=== PATIENT | female | born 1955 | race Caucasian/White ===

== ENCOUNTER 2016-12-04 13:34 | Emergency (ER) | payer OTHER ==
[~2016-12-04] VITALS: Ht 167.6 cm; Wt 103.0 kg
[2016-12-04 13:38] VITALS: BP 171/101; PULSE 69; RESP 17; TEMP 97.5; O2SAT 96
[2016-12-04] MEDS ORDERED: SIMV40TA PO (14:19)
[2016-12-04 14:20] VITALS: BP 187/101; PULSE 70; RESP 18; O2SAT 97
[2016-12-04] MEDS ORDERED: MORPHINE SULFATE 4 MG/ML INJ IV PUSH ONE (14:30)
[2016-12-04] MEDS ORDERED: SODIUM CHLORIDE 0.9% FLUSH 10 ML FLUSH IV FLUSH PRN (14:30)
[2016-12-04] MEDS ORDERED: VANCOMYCIN INJ 1,000 MG in SODIUM CHLOR 0.9% 250 ML INJ 250 ML IV ONE (14:45)
[2016-12-04] MEDS ORDERED: CIPROFLOXACIN 400 MG PREMIX 200 ML IV ONE (14:45)
[2016-12-04] MEDS ORDERED: ONDANSETRON HCL 4 MG/2 ML VIAL IV PUSH ONE (14:45)
--- NOTE | 2016-12-04 14:47 | RADHPO ---
EXAM DATE/TIME: 12/04/2016 13:59 [facility] COMPARISON: No previous studies available for comparison. INDICATIONS : Fall. Left orbital pain. RADIATION DOSE: 57.99 CTDIvol (mGy) MEDICAL HISTORY : None SURGICAL HISTORY : None. ENCOUNTER: Initial ACUITY: 1 day PAIN SCALE: 8/10 LOCATION: Left cranial TECHNIQUE: Multiple contiguous axial images were obtained of the head. Using automated exposure control and adj ustment of the mA and/or kV according to patient size, radiation dose was kept as low as reasonably a chievable to obtain optimal diagnostic quality images. FINDINGS: CEREBRUM: The ventricles are normal for age. No evidence of midline shift, mass lesion, hemorrhage or acute in farction. No extra-axial fluid collections are seen. POSTERIOR FOSSA: The cerebellum and brainstem are intact. The 4th ventricle is midline. The cerebellopontine angle i s unremarkable. EXTRACRANIAL: Disruption of the left globe is seen in partially visualized on this study. Prominent left preorbital soft tissue edema. SKULL: The calvaria is intact. No evidence of skull fracture. CONCLUSION: Disruption left globe with prominent preorbital soft tissue edema. Please see facial bones CT report. No acute intracranial findings. Devon Queen MD on December 04, 2016 at 14:44 Board Certified Radiologist. This report was verified electronically.
[2016-12-04 14:48] VITALS: RESP 16; O2SAT 98
--- NOTE | 2016-12-04 14:50 | RADHPO ---
EXAM DATE/TIME: 12/04/2016 13:59 [facility] COMPARISON: No previous studies available for comparison. INDICATIONS : Fall. Left orbital pain. RADIATION DOSE: 25.95 CTDIvol (mGy) MEDICAL HISTORY : None SURGICAL HISTORY : None. ENCOUNTER: Initial ACUITY: 1 day PAIN SCORE: 8/10 LOCATION: Left facial TECHNIQUE: Volumetric scanning of the facial bones was performed. Using automated exposure control and adjustme nt of the mA and/or kV according to patient size, radiation dose was kept as low as reasonably achiev able to obtain optimal diagnostic quality images. FINDINGS: ORBITS: There is disruption of the left globe with marked deformity and hyperdensity. The lens is not identif ied. Prominent pre-orbital soft tissue edema. Optic nerve and extraocular muscles are grossly intact. Right orbit within normal limits. No evidence of fracture. NASAL BONE: The nasal bone and maxillary spine are intact ZYGOMATIC ARCHES: Symmetric without evidence of fracture. SINUSES: 1.7 cm polyp or retention cyst in the inferior aspect of the left maxillary sinus. NASAL CAVITY: The nasal septum is intact and midline. The lacrimal ducts are intact. CONCLUSION: Disruption of the left lobe with marked deformity and collapse. Heterogeneous hemorrhage is seen in t he region of the globe. There's also hemorrhage and edema in the pre-orbital soft tissues on the left . Devon Queen MD on December 04, 2016 at 14:45 Board Certified Radiologist. This report was verified electronically.
--- NOTE | 2016-12-04 14:52 | PD ---
HPI Chief Complaint: Fall Time Seen by Provider: 13:50 Travel History International Travel<30 days: No Contact w/Intl Traveler<30days: No Traveled to known affect area: No History of Present Illness HPI 61-year-old female here for evaluation of left eye trauma. The patient states that she was walking down 2 steps when she tripped, falling forward, striking her left head/eye on the rounded edge of a granite table at around 1:00 PM. Denies LOC. She is now complaining of significant pain to her left eye/face as well as loss of peripheral vision in her left eye. She denies any other injuries. No neck or back pain. She is not on any antiplatelets or anticoagulants. Date of last tetanus was within the last 5 years. PFSH Past Medical History High Cholesterol: Yes Diminished Hearing: No Immunizations Current: Yes Tetanus Vaccination: < 5 Years Influenza Vaccination: Yes ?: Not Past Surgical History Cholecystectomy: Yes Social History Alcohol Use: No Tobacco Use: No Substance Use: No Allergies-Medications (Allergen,Severity, Reaction): Coded Allergies: No Known Allergies (Unverified , 12/04/16) Reported Meds & Prescriptions Reported Meds & Active Scripts Active Reported Simvastatin 40 Mg Tab 40 Mg PO HS Review of Systems Except as stated in HPI: all other systems reviewed are Neg Physical Exam Narrative GENERAL: Well-developed, well-nourished, awake, alert, holding a a rag full of ice over her left eye. HEAD: Normocephalic. Significant left periorbital edema/ecchymosis with large/ deep upper/medial eyelid laceration as well as a smaller/lower/medial eyelid laceration. There is mild amount of venous bleeding from these lacerations. Vertical/superficial laceration over her mid forehead without active bleeding, no visible contamination. EYES: Right pupil is 3 mm, round, reactive to light. Left periorbital exam as above. Left globe is irregularly shaped with hyphema present in the anterior chamber. No proptosis. ENT: No nasal bleeding or discharge. No nasal septal hematoma. NECK: Trachea midline. No JVD. No midline vertebral step-off or tenderness. CARDIOVASCULAR: Regular rate and rhythm. RESPIRATORY: No accessory muscle use. Clear to auscultation. Breath sounds equal bilaterally. GASTROINTESTINAL: Abdomen soft, non-tender, nondistended. MUSCULOSKELETAL: No obvious deformities. No clubbing. No cyanosis. No edema. Normal range of motion in all joints and extremities. NEUROLOGICAL: Awake and alert. No obvious cranial nerve deficits. Motor grossly within normal limits. Normal speech. PSYCHIATRIC: Appropriate mood and affect; insight and judgment normal. Data Data Last Documented VS Vital Signs Date Time Temp Pulse Resp B/P Pulse Ox O2 Delivery O2 Flow Rate FiO2 12/04/16 15:29 74 16 160/88 98 12/04/16 14:48 Room Air 12/04/16 13:[address] Brain W/O Iv Contrast(Rout) (12/04/16 ) Ct Facial Bones W/O Iv Cont (12/04/16 ) Ct Cerv Spine W/O Contrast (12/04/16 ) Basic Metabolic Panel (Bmp) (12/04/16 14:22) Complete Blood Count With Diff (12/04/16 14:22) Prothrombin Time / Inr (Pt) (12/04/16 14:22) Act Partial Throm Time (Ptt) (12/04/16 14:22) Iv Access Insert/Monitor (12/04/16 14:22) Ecg Monitoring (12/04/16 14:22) Oximetry (12/04/16 14:22) Morphine Inj (Morphine Inj) (12/04/16 14:30) Sodium Chloride 0.9% Flush (Ns Flush) (12/04/16 14:30) Vancomycin Inj (Vancomycin Inj) (12/04/16 14:45) Ciprofloxacin 400 Mg Premix (Cipro 400 M (12/04/16 14:45) Ondansetron Inj (Zofran Inj) (12/04/16 14:45) Hydromorphone Pf Inj (Dilaudid Pf Inj) (12/04/16 15:15) Labs Laboratory Tests Test 12/04/16 14:33 White Blood Count 11.9 TH/MM3 Red Blood Count 4.99 MIL/MM3 Hemoglobin 14.6 GM/DL Hematocrit 43.7 % Mean Corpuscular Volume 87.5 FL Mean Corpuscular Hemoglobin 29.3 PG Mean Corpuscular Hemoglobin 33.5 % Concent Red Cell Distribution Width 11.6 % Platelet Count 327 TH/MM3 Mean Platelet Volume 7.6 FL Neutrophils (%) (Auto) 69.7 % Lymphocytes (%) (Auto) 21.8 % Monocytes (%) (Auto) 6.8 % Eosinophils (%) (Auto) 1.1 % Basophils (%) (Auto) 0.6 % Neutrophils # (Auto) 8.3 TH/MM3 Lymphocytes # (Auto) 2.6 TH/MM3 Monocytes # (Auto) 0.8 TH/MM3 Eosinophils # (Auto) 0.1 TH/MM3 Basophils # (Auto) 0.1 TH/MM3 CBC Comment DIFF FINAL Differential Comment Prothrombin Time 10.8 SEC Prothromb Time International 1.0 RATIO Ratio Activated Partial 27.1 SEC Thromboplast Time Sodium Level 145 MEQ/L Potassium Level 3.5 MEQ/L Chloride Level 105 MEQ/L Carbon Dioxide Level 28.7 MEQ/L Anion Gap 11 MEQ/L Blood Urea Nitrogen 12 MG/DL Creatinine 0.90 MG/DL Estimat Glomerular Filtration 64 ML/MIN Rate Random Glucose 119 MG/DL Calcium Level 8.2 MG/DL MDM Medical Decision Making Medical Screen Exam Complete: Yes Emergency Medical Condition: Yes Differential Diagnosis Ruptured globe, lens dislocation, eyelid laceration, retro-orbital hematoma unlikely Narrative Course Shortly after arrival to the emergency department the patient was probably taken to CT scan, and upon return I discussed findings with on-call radiologist who tells me that the left globe appears to be completely obliterated. All the edema present appears to be preseptal. There is no proptosis on physical exam, therefore no concern for retro-orbital hematoma. 2:30 PM: Case discussed with on-call fiberglass boat parts finisher at [facility] Dr. John Tolbert who has graciously accepted transfer of the patient. The patient will be transferred to their emergency department where he will evaluate the patient and likely take her to the operating room. He would like the patient to be given a dose of vancomycin and Cipro and to be made NPO. Case discussed with emergency physician at [facility] Dr. Fox who is aware that the patient will be transferred to their department. Patient made aware of all findings and plan. She will be transferred emergently to [facility] emergency department. Diagnosis Primary Impression: Ruptured globe of left eye Qualified Code: S05.32XA - Ruptured globe of left eye, initial encounter Additional Impressions: Eyelid laceration Qualified Code: S01.112A - Eyelid laceration, left, initial encounter Forehead laceration Qualified Code: S01.81XA - Forehead laceration, initial encounter Disposition: 70 TRANSFER TO OTHER FACILITY (To [facility] Emergency Department) Condition: Stable Kehinde Castañeda MD Dec 04, 2016 14:52
--- NOTE | 2016-12-04 14:57 | RADHPO ---
EXAM DATE/TIME: 12/04/2016 13:59 [facility] COMPARISON: No previous studies available for comparison. INDICATIONS : Fall. Left orbital pain. RADIATION DOSE: 26.68 CTDIvol (mGy) MEDICAL HISTORY : None SURGICAL HISTORY : None. ENCOUNTER: Initial ACUITY: 1 day PAIN SCALE: 8/10 LOCATION: neck TECHNIQUE: Volumetric scanning of the cervical spine was performed. Multiplanar reconstructions in the sagittal, coronal and oblique axial planes were performed. Using automated exposure control and adjustment o f the mA and/or kV according to patient size, radiation dose was kept as low as reasonably achievable to obtain optimal diagnostic quality images. FINDINGS: Alignment within normal limits. No evidence of fracture. Broad-based disc bulges at C5-6-7. Central c anal diameter within normal limits. Mild right neural foraminal narrowing at C5-6. CONCLUSION: No evidence of fracture. Degenerative findings of the cervical spine. Devon Queen MD on December 04, 2016 at 14:53 Board Certified Radiologist. This report was verified electronically.
[2016-12-04 15:02] LABS: AUTOMATED NEUTROPHIL # 8.3 TH/MM3 (1.8-7.7); BASOPHIL # 0.1 TH/MM3 (0-0.2); BASOPHIL % 0.6 % (0.0-2.0); EOSINOPHIL # 0.1 TH/MM3 (0-0.4); EOSINOPHIL % 1.1 % (0.0-4.0); HEMATOCRIT 43.7 % (35.0-46.0); HEMO FLAGS DIFF FINAL; LYMPH % 21.8 % (9.0-44.0); LYMPHOCYTE # 2.6 TH/MM3 (1.0-4.8); MEAN CELL VOLUME 87.5 FL (80.0-100.0); MEAN CORPUSCULAR HEMOGLOBIN 29.3 PG (27.0-34.0); MEAN CORPUSCULAR HGB CONC 33.5 % (32.0-36.0); MONO % 6.8 % (0.0-8.0); NEUT % 69.7 % (16.0-70.0); PLATELET COUNT 327 TH/MM3 (150-450); RED BLOOD COUNT 4.99 MIL/MM3 (4.00-5.30); RED CELL DISTRIBUTION WIDTH 11.6 % (11.6-17.2); WHITE BLOOD COUNT 11.9 TH/MM3 (4.0-11.0)
[2016-12-04] MEDS ORDERED: HYDROmorphone HCL PF 1 MG/ML VIAL IV PUSH ONE (15:15)
[2016-12-04 15:21] LABS: POTASSIUM 3.5 MEQ/L (3.5-5.1)
[2016-12-04 15:24] LABS: BICARBONATE 28.7 MEQ/L (21.0-32.0)
[2016-12-04 15:26] LABS: APTT (PATIENT) 27.1 SEC (24.3-30.1); PROTHROMBIN TIME - PATIENT 10.8 SEC (9.8-11.6)
[2016-12-04 15:29] VITALS: BP 160/88
== END 2016-12-04 15:32 | disposition short-term general hospital (02) ==
LOC: PHED 13:34
DX: S05.32XA Ocular laceration without prolapse or loss of intraocular tissue, left eye, initial encounter (principal); S01.112A Laceration without foreign body of left eyelid and periocular area, initial encounter; S01.81XA Laceration without foreign body of other part of head, initial encounter; E78.00 Pure hypercholesterolemia, unspecified; W10.9XXA Fall (on) (from) unspecified stairs and steps, initial encounter; W01.190A Fall on same level from slipping, tripping and stumbling with subsequent striking against furniture, initial encounter; Y93.9 Activity, unspecified
CPT/HCPCS: 70450; 70486; 72125; 80048; 85025; 85610; 85730; 96374; 96375; 99284; J1170; J2270; J2405; J3370; J7050; J0744